=== PATIENT | male | born 1965 ===

== ENCOUNTER 2018-04-07 20:10 | Emergency (ER) | payer OTHER ==
[~2018-04-07] VITALS: Ht 175.3 cm; Wt 79.4 kg
[~2018-04-07 20:10] MED LIST: Cyclobenzaprine5 MG PO; IBUP800 PO
== END 2018-04-07 23:55 | disposition home or self-care (01) ==
LOC: ER 20:10
DX: S06.0X0A Concussion without loss of consciousness, initial encounter (principal); Y04.2XXA Assault by strike against or bumped into by another person, initial encounter
CPT/HCPCS: 70450; 99283-25

== ENCOUNTER 2018-04-12 11:42 | Emergency (ER) | payer OTHER ==
[~2018-04-12] VITALS: Ht 172.7 cm; Wt 78.0 kg
[2018-04-12] MEDS ORDERED: CYCL10 PO (12:22)
== END 2018-04-12 12:37 | disposition home or self-care (01) ==
LOC: ER 11:42
DX: M54.2 Cervicalgia (principal); M25.512 Pain in left shoulder
CPT/HCPCS: 99282

== ENCOUNTER 2024-02-07 20:33 | Emergency (ER) | payer OTHER ==
[~2024-02-07] VITALS: Ht 172.7 cm; Wt 81.7 kg
[~2024-02-07 20:33] MED LIST changes: +CYCL10 PO
[2024-02-08] VITALS: BP 146/89
[2024-02-08 01:04] LABS: Influenza A, PCR NEGATIVE (NEGATIVE); Influenza B, PCR NEGATIVE (NEGATIVE); Resp Syncytial Virus, PCR NEGATIVE (NEGATIVE); SARS-Cov-2 (COVID-19) PCR, MMC NEGATIVE (NEGATIVE)
== END 2024-02-08 00:20 | disposition left against medical advice (07) ==
LOC: ER 20:33
PROVIDERS: Emergency Medicine
DX: Z20.822 Contact with and (suspected) exposure to COVID-19 (principal); Z53.21 Procedure and treatment not carried out due to patient leaving prior to being seen by health care provider
CPT/HCPCS: 0241U; 99282